=== PATIENT | female | born 1960 | race Caucasian/White ===

== ENCOUNTER 2021-11-23 08:07 | Outpatient (CLI) | payer OTHER, SELFPAY ==
--- NOTE | ~2021-11-23 | MM_ITS ---
EXAMINATION: MM screening [facility] BI w yoly HISTORY: Screening mammogram TECHNIQUE: Craniocaudal and mediolateral oblique 3-D tomosynthesis images were obtained and synthetic 2-D images were generated. CAD analysis was submitted and interpreted. COMPARISON: 11/20/2017, 03/07/2016, 03/01/2014 BREAST PARENCHYMAL COMPOSITION: The breasts are almost entirely fatty. FINDINGS: A stable focal asymmetry in the upper outer quadrant of the left breast is considered benig n given the lack of interval change. There is no suspicious mass, calcification, or architectural dis tortion to suggest malignancy in either breast. There has been no suspicious interval change. IMPRESSION: 1. No mammographic evidence of malignancy. 2. Recommend routine screening mammography in one year. BI-RADS Category 2: Benign finding(s). Reviewed, dictated and finalized at location A.
== END 2021-11-23 08:08 | disposition home or self-care (01) ==
LOC: ANHIMG 08:10
PROVIDERS: PCP Family Medicine; Visit Provider Family Medicine
DX: Z12.31 Encounter for screening mammogram for malignant neoplasm of breast (principal)
CPT/HCPCS: 77063; 77067

== ENCOUNTER 2022-06-16 15:13 | Emergency (ER) | payer OTHER, SELFPAY ==
[2022-06-16 15:24] VITALS: BP 107/67; PULSE 95; RESP 18; TEMP 37; O2SAT 95
--- NOTE | 2022-06-16 15:30 | ED.URI ---
HPI - URI/Sore Throat General Chief Complaint: Upper Respiratory Infection Stated Complaint: sorethroat Time Seen by Provider: 06/16/22 15:30 Source: patient Mode of arrival: ambulatory Limitations: no limitations History of Present Illness HPI Narrative: 62-year-old female presents with complaint of chest congestion, cough, headache, body aches, fatigue. Reports symptoms for 2-3 days. Reports temperature is normally 96 and is now 98 so she thinks she has a fever. Denies chest pain shortness of breath. Reports that she is wheezing. All systems reviewed and negative except as noted above. Related Data Allergies Allergy/AdvReac Type Severity Reaction Status Date / Time No Known Allergies Allergy Mild Verified 06/16/22 15:23 Review of Systems Review of Systems: CONSTITUTIONAL: Report fever, fatigue. Denies chills, or sweats. EYES: Denies visual changes, redness, or discharge. ENT: report rhinorrhea, congestion, sore throat. Denies otalgia. CARDIOVASCULAR: Denies chest pain, palpitations, or edema. RESPIRATORY: reports cough. Denies dyspnea. GASTROINTESTINAL: Denies abdominal pain, nausea, vomiting, or diarrhea. GENITOURINARY: Denies dysuria or hematuria. SKIN: Denies rash or itching. MUSCULOSKELETAL: Denies back pain, joint pain, or myalgia. NEUROLOGIC: Denies headache, numbness, or weakness. PSYCHIATRIC: Denies anxiety or depression. All other systems reviewed are negative, except as documented in HPI. PMFSH Past Medical History Medical History Obesity, morbid, BMI 50 or higher Family History Family History Grandparent Cerebrovascular accident Diabetes mellitus Mother Patient's mother is in good health Father Patient's father is in good health Other Family history of malignant neoplasm of breast Social History Social History Smoking status: Never smoker Alcohol intake: current Comments At time of signature, agree with nursing past medical, surgical, social and family history. There is no relevant family history pertinent to the presenting complaint. Exam Narrative: GENERAL: This is a well-nourished, well-developed patient. Patient ill-appearing but no distress. HEAD: normocephalic, atraumatic. EYES: PERRL. Sclera clear/white. Vision is grossly intact. EARS: External ears normal, auditory canals clear and without drainage, TMs normal without perforation. Hearing grossly intact. NOSE: External nose normal with no obvious nasal discharge, nares without redness, no rhinorrhea. THROAT: Mucous membranes moist, posterior pharynx clear. NECK: Neck supple, non-tender without lymphadenopathy, masses or thyromegaly. CARDIOVASCULAR: Regular rate and rhythm without murmurs, gallops, or rubs. RESPIRATORY: Decrease to lower lung kline bilaterally. No wheezes, rales, or rhonchi. SKIN: warm, Dry, intact with no suspicious lesions or rash, good texture and turgor. NEURO: awake, alert, and oriented to person, place and time. There were no obvious focal neurologic abnormalities. EXTREMITIES: No joint tenderness, effusion, or edema noted. Course Course Level of Care: Express Care Visit Vital Signs Vital signs: Vital Signs Temperature 37.0 C 06/16/22 15:24 Pulse Rate 95 06/16/22 15:24 Respiratory Rate 18 06/16/22 15:24 Blood Pressure 107/67 06/16/22 15:24 Pulse Oximetry 95 06/16/22 15:24 Oxygen Delivery Room Air 06/16/22 15:24 Temperature 37.0 C 06/16/22 15:24 Pulse Rate 95 06/16/22 15:24 Respiratory Rate 18 06/16/22 15:24 Blood Pressure 107/67 06/16/22 15:24 Pulse Oximetry 95 06/16/22 15:24 Oxygen Delivery Room Air 06/16/22 15:24 Reviewed MDM - URI/Sore Throat MDM Narrative Medical decision making narrative: Patient is aware of diagnosis, understands and agrees to treatm
== END 2022-06-16 16:03 | disposition home or self-care (01) ==
PROVIDERS: Emergency Provider Nurse Practitioner Family; PCP Family Medicine
DX: J22 Unspecified acute lower respiratory infection (principal); Z20.822 Contact with and (suspected) exposure to COVID-19; E66.9 Obesity, unspecified; Z68.43 Body mass index [BMI] 50.0-59.9, adult
CPT/HCPCS: 87081; 87426; 87804; 87880; 99213; C9803; G0463

== ENCOUNTER 2022-08-23 08:13 | Outpatient (CLI) | payer OTHER, SELFPAY ==
--- NOTE | ~2022-08-23 | US_ITS ---
Limited Abdominal Sonogram: Real-time sonographic imaging of the right upper quadrant was performed. Clinical History: Abnormal serum enzyme levels Findings: The liver appears mildly echogenic, with no evidence of mass lesion or bile duct dilatatio n. Main portal vein demonstrates normal direction of flow. The gallbladder is well distended, and con tains echogenic gallstones. No gallbladder wall thickening. The common bile duct measures 5 mm. The visualized pancreas, aorta, and IVC are unremarkable. Impression: Cholelithiasis. Diffuse fatty infiltration of the liver. Reviewed, dictated and finalized at location M. DING MACHINE TENDER Impression: Cholelithiasis. Diffuse fatty infiltration of the liver.
== END 2022-08-23 08:14 | disposition home or self-care (01) ==
PROVIDERS: PCP Family Medicine; Visit Provider Nurse Practitioner Family
DX: R74.8 Abnormal levels of other serum enzymes (principal); K80.20 Calculus of gallbladder without cholecystitis without obstruction; K76.0 Fatty (change of) liver, not elsewhere classified
CPT/HCPCS: 76705

== ENCOUNTER 2023-05-14 01:30 | Day surgery (SDC) | payer OTHER, SELFPAY ==
[2023-04-29 08:40] VITALS: BMI 52.3
--- NOTE | 2023-05-12 10:12 | SUR.PREOP ---
Patient called regarding upcoming procedure. Patient did not answer- message left with arrival.
[2023-05-14 08:57] VITALS: BP 121/60; PULSE 101; RESP 18; TEMP 36.8; O2SAT 96
[2023-05-14] MEDS: LACTATED RINGERS 1,000 ML 150 ML IV CONT (09:06)
--- NOTE | 2023-05-14 09:08 | WPDANESEPPF ---
Anes - Initial Pre Proc Eval Procedure: Operation Date: 05/14/23 13:30 Proposed Procedures p Screening Colonoscopy - Quinton Spring MD Date/Time: 05/14/23 09:08 Surgeon: Quinton Spring MD Pre Op Diagnosis: neoplasm screening Patient Data Age: 63 Gender: F Height: 1.63 m Weight: 138.2 kg Last Vital Signs Temp 98.3 F 05/14/23 08:57 Pulse 101 H 05/14/23 08:57 Resp 18 05/14/23 08:57 BP 121/60 05/14/23 08:57 Pulse Ox 96 05/14/23 08:57 O2 Del Method Room Air 05/14/23 08:57 Allergies Allergy/AdvReac Type Severity Reaction Status Date / Time No Known Allergies Allergy Mild Verified 05/14/23 08:55 Home Medications Medication Instructions Recorded Confirmed Type metformin 500 mg tablet,extended 2,000 mg PO DAILY #360 tabs 07/09/22 05/14/23 Rx release 24 hr triamterene 37.5 1 tablet PO QAM #90 tabs 11/20/22 05/14/23 Rx mg-hydrochlorothiazide 25 mg tablet olmesartan 20 mg tablet See Rx Instructions .Route 02/17/23 05/14/23 Rx .COMPLEX #90 tabs levothyroxine 75 mcg tablet See Rx Instructions .Route 04/26/23 05/14/23 Rx .COMPLEX #90 tabs B Complex-Vitamin B12 1 tab-cap PO DAILY 04/29/23 05/14/23 History multivitamin with minerals 1 tablet PO DAILY 04/29/23 05/14/23 History Patient hx anesthesia problems: none Family hx anesthesia problems: none Results Review: All pre-operative results and documents have been reviewed as part of the pre-operative evaluation. [facility] Past Medical History Medical History Obesity, morbid, BMI 50 or higher Family History Family History Grandparent Cerebrovascular accident Diabetes mellitus Mother Patient's mother is in good health Father Patient's father is in good health Other Family history of malignant neoplasm of breast Social History Social History Smoking status: Never smoker Alcohol intake: never Substance use: never Substance use type: does not use Living arrangements: with family Spiritual care concerns: No Anes - Eval Final PreProcedure Day of Procedure 05/14/23 09:08 Patient weight: super morbidly obese Heart: regular rate and rhythm Lungs: clear to auscultation Airway: Mallampati scale class III Neurological: alert and oriented Last oral intake: >/= 8 hours ASA classification: III Emergent: no Anesthetic plan: proceed Anesthesia type and monitoring: general GIVS and standard monitoring Results Review: All pre-operative results and documents have been reviewed as part of the pre-operative evaluation. Informed Consent: The patient's anesthetic plan and its attendant risks and benefits were discussed with the patient/family/POA. Questions were solicited and answers provided to the satisfaction of the patient/family/POA.
[2023-05-14 09:12] LABS: Glucose Point of Care 129 mg/dl (65-105)
--- NOTE | 2023-05-14 09:31 | PM.HPGS ---
History of Present Illness History of Present Illness Consent: Risks, benefits, and alternatives have been discussed and questions answered. Patient agrees to proceed with procedure. Chief complaint: neoplasm screening Narrative: Marie Posey is a 63 year old female Referred for colon cancer screening. Review of Systems Review of Systems: All systems reviewed & are unremarkable except as noted in HPI and below PMFSH Past Medical History Medical History Obesity, morbid, BMI 50 or higher Family History Family History Grandparent Cerebrovascular accident Diabetes mellitus Mother Patient's mother is in good health Father Patient's father is in good health Other Family history of malignant neoplasm of breast Social History Social History Smoking status: Never smoker Alcohol intake: never Substance use: never Substance use type: does not use Living arrangements: with family Spiritual care concerns: No Meds Home Medications and Allergies Home Medications Medication Instructions Recorded Confirmed Type metformin 500 mg tablet,extended 2,000 mg PO DAILY #360 tabs 07/09/22 05/14/23 Rx release 24 hr triamterene 37.5 1 tablet PO QAM #90 tabs 11/20/22 05/14/23 Rx mg-hydrochlorothiazide 25 mg tablet olmesartan 20 mg tablet See Rx Instructions .Route 02/17/23 05/14/23 Rx .COMPLEX #90 tabs levothyroxine 75 mcg tablet See Rx Instructions .Route 04/26/23 05/14/23 Rx .COMPLEX #90 tabs B Complex-Vitamin B12 1 tab-cap PO DAILY 04/29/23 05/14/23 History multivitamin with minerals 1 tablet PO DAILY 04/29/23 05/14/23 History Allergies Allergy/AdvReac Type Severity Reaction Status Date / Time No Known Allergies Allergy Mild Verified 05/14/23 08:55 Vital Signs Vital Signs - 24 hr 05/14/23 08:57 Temperature 36.8 C Pulse Rate 101 H Respiratory Rate 18 Blood Pressure 121/60 Pulse Oximetry 96 Oxygen Delivery Room Air Exam Const: General: alert Orientation/consciousness: patient oriented x3 Resp: Auscultation: clear to auscultation bilaterally Cardio: Rhythm: regular rhythm GI: GI Palp: Yes Soft to palpation and No Tenderness to palpation present (GI) Neuro: General: patient oriented x3 Assessment and Plan Assessment and plan (1) Colon cancer screening: Code(s): Z12.11 - Encounter for screening for malignant neoplasm of colon Status: Acute Assessment and Plan: Colonoscopy with possible biopsy or polypectomy or cautery or injection of substances.
[2023-05-14 09:52] VITALS: BP 97/56; PULSE 92; RESP 18; O2SAT 92
[2023-05-14 10:02] VITALS: BP 116/73; PULSE 90; RESP 20; O2SAT 98
[2023-05-14 10:12] VITALS: BP 119/77; PULSE 86; RESP 20; O2SAT 98
== END 2023-05-14 10:21 | disposition home or self-care (01) ==
PROVIDERS: PCP Family Medicine; Visit Provider Internal Medicine Gastroenterology
PROC: 0DJD8ZZ Inspection of Lower Intestinal Tract, Via Natural or Artificial Opening Endoscopic (ICD-10-PCS; CPT 45378; principal; 2023-05-14 13:30)
DX: Z12.11 Encounter for screening for malignant neoplasm of colon (principal); K57.30 Diverticulosis of large intestine without perforation or abscess without bleeding; E66.01 Morbid (severe) obesity due to excess calories; Z68.43 Body mass index [BMI] 50.0-59.9, adult; Z79.84 Long term (current) use of oral hypoglycemic drugs; Z82.49 Family history of ischemic heart disease and other diseases of the circulatory system; Z80.3 Family history of malignant neoplasm of breast
CPT/HCPCS: 45378; 82948; J2704; J7120

== ENCOUNTER 2023-07-28 07:48 | Outpatient (CLI) | payer OTHER, SELFPAY ==
--- NOTE | ~2023-07-28 | MM_ITS ---
EXAMINATION: MM screening [facility] BI w yoly HISTORY: Screening mammogram TECHNIQUE: Craniocaudal and mediolateral oblique 3-D tomosynthesis images were obtained and synthetic 2-D images were generated. CAD analysis was submitted and interpreted. COMPARISON: 11/23/2021, 11/20/2017 BREAST PARENCHYMAL COMPOSITION: The breasts are almost entirely fatty. FINDINGS: Again noted is a stable focal asymmetry in the upper outer quadrant of the left breast. No suspicious mass, calcification, or architectural distortion are identified in either breast to sugges t malignancy. There has been no suspicious interval change. IMPRESSION: 1. No mammographic evidence of malignancy. 2. Recommend routine screening mammography in one year. BI-RADS Category 2: Benign finding(s). Reviewed, dictated and finalized at location A. DRILL OPERATOR
== END 2023-07-28 07:49 | disposition home or self-care (01) ==
LOC: ANHIMG 07:49
PROVIDERS: PCP Family Medicine; Visit Provider Obstetrics & Gynecology
DX: Z12.31 Encounter for screening mammogram for malignant neoplasm of breast (principal)
CPT/HCPCS: 77063; 77067